=== PATIENT | male | born 1990 | race Caucasian/White ===

== ENCOUNTER 2018-06-02 05:14 | Emergency (ER) | payer OTHER ==
[~2018-06-02] VITALS: Ht 172.7 cm; Wt 78.9 kg
[2018-06-02 05:15] VITALS: Ht 172.7 cm; Wt 78.9 kg
[2018-06-02 06:12] VITALS: BP 115/77
== END 2018-06-02 06:12 | disposition other institution (70) ==
LOC: ED 05:14
DX: Z02.89 Encounter for other administrative examinations (principal)